=== PATIENT | female | born 1935 | race Caucasian/White ===

== ENCOUNTER 2018-04-18 09:26 | Outpatient (CLI) | payer MEDICARE ==
--- NOTE | 2018-05-16 14:05 | MMO ---
BILATERAL MAMMOGRAMS: DATE: 04/18/18 HISTORY: Screening mammography. COMPARISON: None available. Baseline study. FINDINGS: Scattered fibroglandular densities. No dominant mass or suspicious calcifications. The study was evaluated with the assistance of computer-aided detection. IMPRESSION: BIRADS 1: Negative Suggest routine follow-up. POS: [facility]
== END 2018-04-18 09:27 | disposition home or self-care (01) ==
LOC: SCSMAMMO 09:26
PROVIDERS: ATTEND Internal Medicine Geriatric Medicine
DX: Z12.31 Encounter for screening mammogram for malignant neoplasm of breast (principal)
CPT/HCPCS: 77067